=== PATIENT | female | born 1965 | race Caucasian/White ===

== ENCOUNTER → 2016-09-12 | Outpatient (CLI) | payer BC ==
[~2016-09-12] VITALS: Ht 167.6 cm; Wt 88.5 kg
[~2016-09-12] MED LIST: BUSPAR7.5 MG PO; COMPLEX B-1001 EACH PO; DAILY VALUE1 EACH PO; FLEXERIL10 MG PO; IMITREX100 MG PO; KENALOG,ARISTOC80 GM TP; LO-DOSE ASPIRIN81 M2 PO; RELAFEN750 MG PO; TENORMIN100 MG PO; VITAMIN D31000 UNI2 PO; ZESTRIL40 MG PO; ZOCOR40 MG PO
== END | disposition home or self-care (01) ==
LOC: AMB 06:30
PROC: 0DJD8ZZ Inspection of Lower Intestinal Tract, Via Natural or Artificial Opening Endoscopic (ICD-10-PCS; principal; 2016-09-12)
DX: Z12.11 Encounter for screening for malignant neoplasm of colon (principal); K64.8 Other hemorrhoids; I10 Essential (primary) hypertension; F41.9 Anxiety disorder, unspecified; E78.5 Hyperlipidemia, unspecified; E66.9 Obesity, unspecified; Z68.32 Body mass index [BMI] 32.0-32.9, adult; Z79.82 Long term (current) use of aspirin; E55.9 Vitamin D deficiency, unspecified; Z82.49 Family history of ischemic heart disease and other diseases of the circulatory system; Z80.3 Family history of malignant neoplasm of breast
CPT/HCPCS: 93005